=== PATIENT | female | born 1930 | race Two or more races ===

== ENCOUNTER → 2017-10-07 | Emergency (ER) | payer OTHER ==
[~2017-10-07] VITALS: Ht 162.6 cm; Wt 63.5 kg
[~2017-10-07] MED LIST: ENALAPRIL MALE2.5 MG; LIPIODOL10 ML; OSEL75CA PO; TUSSI PRES-B L120 M1 PO; VERAPAMIL ER100 MG
== END | disposition home or self-care (01) ==
LOC: ER 14:22
DX: K29.70 Gastritis, unspecified, without bleeding (principal)

== ENCOUNTER → 2017-10-08 | Emergency (ER) | payer OTHER ==
[~2017-10-08] VITALS: Ht 162.6 cm; Wt 65.8 kg
== END | disposition home or self-care (01) ==
LOC: ER 16:06
DX: J11.1 Influenza due to unidentified influenza virus with other respiratory manifestations (principal)

== ENCOUNTER 2017-10-13 16:01 | Outpatient (CLI) | payer OTHER | END 2017-10-13 16:37 | disposition home or self-care (01) | LOC: RAD 16:01 | DX: J33.9 Nasal polyp, unspecified (principal); R05 Cough ==

== ENCOUNTER → 2017-10-13 | Outpatient (CLI) | payer OTHER ==
[~2017-10-13] MED LIST changes: +LIPITOR20 MG PO
== END | disposition home or self-care (01) ==
LOC: PPHC 13:36
DX: R05 Cough (principal); J06.9 Acute upper respiratory infection, unspecified

== ENCOUNTER 2018-05-12 20:22 | Emergency (ER) | payer OTHER ==
[~2018-05-12] VITALS: Ht 160 cm; Wt 63.5 kg
== END 2018-05-12 22:54 | disposition home or self-care (01) ==
LOC: ER 20:22
DX: S42.251A Displaced fracture of greater tuberosity of right humerus, initial encounter for closed fracture (principal); W18.39XA Other fall on same level, initial encounter; Y93.89 Activity, other specified; Y92.098 Other place in other non-institutional residence as the place of occurrence of the external cause; Y99.8 Other external cause status